=== PATIENT | female | born 1985 ===

== ENCOUNTER 2018-07-01 15:30 | Outpatient (RCR) | payer BC ==
[~2018-07-01 15:30] MED LIST: MOTRIN 600600 MG/TAB PO; PERCOCET 325 MG1 TA2 PO
== END 2018-07-01 16:08 | disposition home or self-care (01) ==
LOC: WSPT 15:30
DX: Z01.818 Encounter for other preprocedural examination (principal)
CPT/HCPCS: G0283-GP

== ENCOUNTER 2018-10-04 14:15 | Outpatient (RCR) | payer BC | END 2018-10-06 | disposition home or self-care (01) | LOC: WSPT | DX: Z47.89 Encounter for other orthopedic aftercare (principal) | CPT/HCPCS: G0283-GP ==

== ENCOUNTER 2018-12-21 09:45 | Outpatient (RCR) | payer BC | END 2018-12-21 10:38 | disposition home or self-care (01) | LOC: WSPT 09:45 | DX: Z47.89 Encounter for other orthopedic aftercare (principal) ==

== ENCOUNTER 2019-04-18 15:00 | Outpatient (RCR) | payer BC | END 2019-04-28 14:53 | disposition home or self-care (01) | LOC: WSPT 15:00 | DX: Z96.651 Presence of right artificial knee joint (principal); Z98.890 Other specified postprocedural states ==